=== PATIENT | male | born 1980 | race Caucasian/White ===

== ENCOUNTER 2025-05-10 04:06 | Emergency (ER) | payer MEDICARE, SELFPAY ==
[2025-05-10 04:07] VITALS: BP 158/109; PULSE 92; RESP 17; TEMP 36.8; O2SAT 98; BMI 25.6
--- NOTE | 2025-05-10 05:21 | PD.EDHAND ---
Upper Extremity Injury RME/HPI General Chief Complaint: Hand/Wrist Problems Stated Complaint: LAC TO THE R HAND Time Seen by Provider: 05/10/25 04:22 Arrival date/time: 05/10/25 04:06 RME / HPI RME / HPI narrative: 44-year-old right-handed male presents to the ED with a complaint of right dorsal hand laceration secondary to an injury he sustained at work. Patient states that he was working with a piece of sheet metal when his partner holding the piece of sheet metal did not have full control, which caused the sheet-metal to fall landing on his right hand. He states his last tetanus was likely greater than 10 years ago. He denies any functional deficit. Denies any numbness or tingling distally. Related Data Previous Rx's ?Medication ?Instructions ?Recorded metoprolol succinate 25 mg 25 mg PO QDAY #30 tabs 05/10/25 tablet,extended release 24 hr Allergies Allergy/AdvReac Type Severity Reaction Status Date / Time No Known Allergies Allergy Verified 05/10/25 04:11 Review of Systems Review of Systems Systems Reviewed: All systems reviewed, normal except as documented Past Medical History Social History SMOKING STATUS: Never smoker ED Exam Narrative Physical exam: 44-year-old male, no acute distress, approximate 3.5 cm laceration noted to the dorsal aspect of the right hand in the area of the 2nd and 3rd metacarpals. Good flexion and full extension of the fingers of the right hand. Good flexion and extension of the wrist. CMS intact distally. Course Course Course Narrative: Wound closure with number six 4-0 nylon sutures with good wound edge approximation. Laceration was down to the superficial fascia but did not penetrate the fascia. Orders Category Date Time Status TDap [Obtain Tdap Consent] X1 Care 05/10/25 05:55 Active Vital Signs, Non-Routine Timed Care 05/10/25 Ordered TET,DIP/PERT AC (Adult)-Tdap [Boostrix Adult (Tdap) Med 05/10/25 05:55 Discontinued Vacc] 0.5 ml IMI .ONCE ONE Vital Signs Vital signs: Vital Signs Temperature 98.2 F 05/10/25 04:07 Pulse Rate 92 05/10/25 04:07 Respiratory Rate 17 05/10/25 04:07 Blood Pressure 158/109 H 05/10/25 04:07 Pulse Oximetry (%) 98 05/10/25 04:07 Oxygen Delivery Method Room Air 05/10/25 04:07 Extremity Injury Medications / Prescriptions Medication administrations:: Medication Administration History Discontinued Medications Diphtheria/Tetanus/Acell Pertussis (Diphth,Pertuss(Acell),Tet Vac 0.5 Ml Syr- Adult) 0.5 ml IMi .ONCE ONE Stop: 05/10/25 05:56 Discharge Plan Plan Patient Disposition: HOME (Self Care) Discharge Disposition comment: Stable and improved Prescriptions/Referrals Prescriptions/Med Rec: New metoprolol succinate 25 mg tablet extended release 24 hr 25 mg PO QDAY Qty: 30 0RF Referrals: No Primary/Family,Physician [Primary Care Provider] - In 1 week Problem List Clinical Impression: Laceration of hand without complication, excluding fingers Patient/Caregiver Discharge Instructions Education Materials: ED Laceration, Hand: All Closures Additional Instructions: Keep the wound clean and dry, do not expose it to excessive amounts of moisture. Suture removal in 10 days. Follow-up with the work comp doctor of your employer's choice. Return to the ED for any new or worsening symptoms. Print Language: [place]er Stand Alone Forms: Elisha Award Info., Patient Portal Info Letter Vaccines Vaccines Given During Stay: TDaP PA/[employer] TURRET LATHE OPERATOR Supervising Physician PA/TUMBLE TAILSTOCK TURRET LATHE OPERATOR Supervising Physician: Dr Sampson
[2025-05-10 05:59] VITALS: BP 156/104; PULSE 88; RESP 20; TEMP 36.7; O2SAT 98
--- NOTE | 2025-05-10 07:31 | PC.NURSE ---
called from lobby for med and discharge and no answer. pt not found inside the e.d. or outside
--- NOTE | 2025-05-10 07:41 | PC.NURSE ---
n/a FROM [facility] FOR MEDICATION AND DC
--- NOTE | 2025-05-10 07:50 | PC.NURSE ---
CALLED FROM LOBBY AND NO ANSWER
== END 2025-05-10 07:51 | disposition home or self-care (01) ==
PROVIDERS: Emergency Provider Emergency Medicine
DX: S61.411A Laceration without foreign body of right hand, initial encounter (principal); W20.8XXA Other cause of strike by thrown, projected or falling object, initial encounter; Y93.89 Activity, other specified; Y99.0 Civilian activity done for income or pay
CPT/HCPCS: 12002; 99283